=== PATIENT | female | born 1985 | race Caucasian/White ===

== ENCOUNTER 2018-05-13 09:47 | Emergency (ER) | payer MEDICAID ==
[~2018-05-13] VITALS: Ht 180.3 cm; Wt 70.0 kg
[~2018-05-13 09:47] MED LIST: LEVO500T2 PO; METR500T4 PO; NO HOME MEDS
[2018-05-13 10:06] VITALS: BP 108/61
== END 2018-05-13 10:54 | disposition home or self-care (01) ==
LOC: ER 09:47
DX: R10.30 Lower abdominal pain, unspecified (principal); F12.90 Cannabis use, unspecified, uncomplicated; Z79.2 Long term (current) use of antibiotics; Z91.018 Allergy to other foods; Z56.0 Unemployment, unspecified; Z85.038 Personal history of other malignant neoplasm of large intestine
CPT/HCPCS: 99281